=== PATIENT | female | born 1995 | race Caucasian/White ===

== ENCOUNTER 2016-12-04 19:30 | Emergency (ER) | payer OTHER ==
[~2016-12-04] VITALS: Ht 162.6 cm; Wt 92.7 kg
[~2016-12-04 19:30] MED LIST: IBUP80TA PO; PERCOCET PO
[2016-12-04] MEDS ORDERED: MEDR1VL IM (20:00)
[2016-12-05] MEDS ORDERED: KETOROLAC 60 MG/2 ML VIAL (J1885) IM ONE (00:15)
[2016-12-05] MEDS ORDERED: NAPR500T PO (00:23)
[2016-12-05 00:41] VITALS: BP 130/70
--- NOTE | 2016-12-05 00:54 | REP ---
Clinical: Centralized chest pain . Comparison: None . Technique: PA and lateral. Findings: The mediastinum and cardiac silhouette are normal. The lung thomas are clear and without acute consolidation, effusion, or pneumothorax. The skeletal structures are intact and normal. Impression: 1. No acute cardiopulmonary process. Signed by Duc Liao MD 12/05/2016 12:46 A
--- NOTE | 2016-12-05 09:03 | ECGEPIP ---
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
== END 2016-12-05 00:43 | disposition home or self-care (01) ==
LOC: M ED 19:30
DX: M94.0 Chondrocostal junction syndrome [Tietze] (principal); J45.909 Unspecified asthma, uncomplicated; F17.210 Nicotine dependence, cigarettes, uncomplicated; Z88.2 Allergy status to sulfonamides; Z79.899 Other long term (current) drug therapy
CPT/HCPCS: 71020; 93000; 96372; 99283; J1885

== ENCOUNTER → 2018-01-21 | Outpatient (REF) | payer OTHER ==
[2018-01-21 18:32] LABS: HEMOGLOBIN 13.1 g/dl (12.0-15.5); MEAN CORPUSCULAR HEMOGLOBIN 34.1 pg (27.0-33.0); MEAN CORPUSCULAR HGB CONC 34.5 g/dl (32.0-36.5); PLATELET COUNT, AUTOMATED 265 10^3/uL (150-450); RED BLOOD COUNT 3.84 10^6/uL (4.00-5.40); RED CELL DISTRIBUTION WIDTH 11.7 % (11.5-14.5)
[2018-01-22 00:09] LABS: HCG, SERUM QUANTITATIVE 14582 MIU/ML
[2018-01-23 12:11] LABS: HBsAg Prenatal NEGATIVE (NEGATIVE); RUBELLA IgG QUALITATIVE IMMUNE (IMMUNE)
[2018-01-23 12:11] LABS: HEPATITIS C VIRUS ABY INDEX 0.1 INDEX (<0.8)
[2018-01-23 14:14] LABS: HIV 1&2 SCREEN CENTAUR NEGATIVE (NEGATIVE)
== END ==
LOC: M LAB REF 17:09
DX: O36.80X0 Pregnancy with inconclusive fetal viability, not applicable or unspecified (principal); Z32.01 Encounter for pregnancy test, result positive

== ENCOUNTER → 2018-06-21 | Outpatient (CLI) | payer OTHER ==
[~2018-06-21] MED LIST changes: +MEDR1VL IM; +NAPR-50 PO
[2018-06-21 16:21] LABS: HEMATOCRIT 34.3 % (36.0-47.0); HEMOGLOBIN 11.8 g/dl (12.0-15.5); MEAN CORPUSCULAR HEMOGLOBIN 33.8 pg (27.0-33.0); MEAN CORPUSCULAR HGB CONC 34.4 g/dl (32.0-36.5); MEAN CORPUSCULAR VOLUME 98.3 fl (80.0-96.0); PLATELET COUNT, AUTOMATED 256 10^3/uL (150-450); RED BLOOD COUNT 3.49 10^6/uL (4.00-5.40)
== END ==
LOC: M WUC 13:05
PROVIDERS: ATTEND Obstetrics & Gynecology
DX: Z36.89 Encounter for other specified antenatal screening (principal)

== ENCOUNTER → 2018-07-03 | Outpatient (CLI) | payer OTHER | LOC: M LAB 06:51 | PROVIDERS: ATTEND Obstetrics & Gynecology | DX: O99.810 Abnormal glucose complicating pregnancy (principal) ==

== ENCOUNTER → 2018-08-15 | Outpatient (REF) | payer OTHER ==
[~2018-08-15] MED LIST changes: -NAPR-50 PO; +NAPR-837 PO
== END ==
LOC: M LAB REF 13:00
PROVIDERS: ATTEND Obstetrics & Gynecology
DX: Z34.83 Encounter for supervision of other normal pregnancy, third trimester (principal); Z3A.00 Weeks of gestation of pregnancy not specified

== ENCOUNTER 2018-08-29 05:23 | Inpatient (IN) | payer OTHER ==
[2018-08-29] VITALS (9 sets, daily range): BP systolic 106–130; BP diastolic 58–90
[~2018-08-29] VITALS: Ht 167.6 cm; Wt 113.4 kg
[2018-08-29] MEDS ORDERED: LACTATED RINGER'S 1000 ML IV STA (05:46)
[2018-08-29] MEDS ORDERED: LR 1,000 ML IV SCH (05:46)
[2018-08-29] MEDS ORDERED: BICITRA 30ML SOLN UDC PO ONE (06:00)
[2018-08-29 06:06] LABS: HEMATOCRIT 37.8 % (36.0-47.0); HEMOGLOBIN 13.2 g/dl (12.0-15.5); MEAN CORPUSCULAR HEMOGLOBIN 33.7 pg (27.0-33.0); MEAN CORPUSCULAR HGB CONC 34.9 g/dl (32.0-36.5); MEAN CORPUSCULAR VOLUME 96.4 fl (80.0-96.0); PLATELET COUNT, AUTOMATED 271 10^3/uL (150-450); RED BLOOD COUNT 3.92 10^6/uL (4.00-5.40); WHITE BLOOD COUNT 15.7 10^3/uL (4.0-10.0)
[2018-08-29] MEDS ORDERED: MORPHINE PRES-FREE INJ 10 MG/10 ML VIAL (J2274) As Ordered ONE (07:20)
[2018-08-29] MEDS ORDERED: OXYTOCIN INJ 10 UNITS/ML VIAL (J2590) As Ordered ONE (07:21)
[2018-08-29] MEDS ORDERED: METOCLOPRAMIDE INJ 10MG/2ML VIAL (J2765) IV PRN (07:50)
[2018-08-29] MEDS ORDERED: diphenhydrAMINE INJ 50MG/ML VIAL (J1200) IV PRN (07:50)
[2018-08-29] MEDS ORDERED: NALOXONE INJ 0.4 MG/1 ML VIAL (J2310) IV PRN ×2 (07:50)
[2018-08-29] MEDS ORDERED: ONDANSETRON 4MG/2ML VIAL (J2405) IV PRN ×2 (07:50→09:00)
[2018-08-29] MEDS ORDERED: NALBUPHINE HCL 10 MG/ML AMP (J2300) IV PRN ×2 (07:50→09:00)
[2018-08-29] MEDS ORDERED: ePHEDrine SULFATE 25 MG/5 ML(5MG/ML) SYRINGE As Ordered ONE (07:54)
[2018-08-29] MEDS ORDERED: PHENYLephrine HCL 500 MCG/5 ML (100MCG/ML) SYRINGE (J2370) As Ordered ONE (07:56)
[2018-08-29] MEDS ORDERED: OXYTOCIN DRIP 30 UNITS in APPROPRIATE DILUENT 1 EA IV SCH (08:48)
[2018-08-29] MEDS ORDERED: fentaNYL 100 MCG/2 ML INJECTION (J3010) IV PRN (09:00)
[2018-08-29] MEDS ORDERED: MOM 30ML SUSPENSION UDC PO PRN (09:00)
[2018-08-29] MEDS ORDERED: KETOROLAC 30 MG/ML VIAL (J1885) IV PRN (09:00)
[2018-08-29] MEDS ORDERED: MEASLES,MUMPS,RUBELLA VACCINE INJ (MMR-II) (90707) SC SCH (09:00)
[2018-08-29] MEDS ORDERED: MEPERIDINE INJ 25 MG/ML VIAL (J2175) IV PRN (09:00)
[2018-08-29] MEDS ORDERED: RHOGAM 300 MCG (1500 IU) INJ (J2790) IM SCH (09:00)
[2018-08-29] MEDS ORDERED: PERCOCET 5MG/325MG TAB PO PRN (09:00)
[2018-08-29 09:01] LABS: CORD GAS ABE V -4.7; CORD GAS HCO3 V 20.9 MEQ/L; CORD GAS O2 SAT V 78.8 %; CORD GAS PCO2 V 40.6 mmHg; CORD GAS PH V 7.329 UNITS; CORD GAS PO2 V 36.5 mmHg; CORD GAS SBC V 20.2 MEQ/L; CORD GAS TCO2 V 22.1 MEQ/L
[2018-08-29 09:03] LABS: CORD GAS ABE A -4.9; CORD GAS HCO3 A 20.8 MEQ/L; CORD GAS PCO2 A 40.9 mmHg; CORD GAS PH A 7.324 UNITS; CORD GAS PO2 A 42.8 mmHg; CORD GAS SBC A 20.2 MEQ/L
--- NOTE | 2018-08-29 09:33 | RO ---
DATE OF PROCEDURE: 08/29/2018 This is 23-year-old female, 2, para 1-0-0-1, with a history of prior section being admitted for elective repeat section. The patient also desires permanent tubal sterilization. She was counseled extensively in the office and aware of the permanent nature of a tubal ligation, and she wishes to proceed with that. She also understands the number one issues with tubal ligation at a younger age like this is regret. Patient expressed no interest in any future . PREOPERATIVE DIAGNOSES: 1. Term for elective repeat section. 2. Desires permanent tubal sterilization. POSTOPERATIVE DIAGNOSES: 1. Term for elective repeat section. 2. Desires permanent tubal sterilization. PROCEDURE: 1. Repeat section. 2. Bilateral tubal ligation using Filshie clip. 3. Revision of old scar. SURGEON: Dr. Armendariz BEAN DUMPER: Dr. Travis ANESTHESIA: Spinal. COMPLICATIONS: None. ESTIMATED BLOOD LOSS: 500 mL. FINDINGS: Live female infant in occiput transverse position with a nuchal cord times one, 9/9, weight 6 pounds 1 ounce. Placenta delivered manually. Bilateral tube and ovaries within normal limits. DESCRIPTION OF PROCEDURE: After obtaining informed consent, the patient was taken to the operating room where spinal anesthetic was found to be adequate. She was draped and prepped in usual sterile fashion in the supine position. At this point, with the help of Dr. Travis, an elliptical incision was made over the old scar. The old scar was removed. The incision was carried down to the fascia. Fascia was incised in midline fashion and carried through laterally. The fascia was then tented off and dissected off the rectus muscles sharply. The inferior aspect was dissected off in a similar fashion. Rectus muscles in midline fashion. Perineum identified. Peritoneal cavity entered bluntly. Superior and inferior dissection of the peritoneum was then done with good visualization of the bladder. At this point, a Mobius skin retractor was placed. A low-transverse uterine incision was made. Dr. Travis assist in delivering the fetus and after delivery of the the cord was doubly clamped and cut. Cord blood and cord gas were sent. Placenta removed manually. Uterus cleared of all clot and debris, and the uterine incision was then repaired in two separate layers of #0 Vicryl suture. At this point, attention was turned to the fallopian tube where the fimbriated ends were identified and a Filshie clip was then applied approximately 2-3 cm away from the cornual area in each tube. Pelvis copiously irrigated with normal saline and suctioned out. Attention turned to the peritoneum, which was closed in running fashion using #2-0 Vicryl. Fascia closed in two separate segment of #0 Vicryl sutures. All superficial bleeders were coagulated and the skin was reapproximated in subcuticular fashion using #3-0 Vicryl on a Philippe. Steri-Strips placed. The patient tolerated procedure well. She was then transferred to recovery room in stable condition.
[2018-08-29] MEDS ORDERED: OXYTOCIN 30 UNITS IN 0.9% NaCl 500ML IV BAG (J2590) As Ordered ONE (09:38)
[2018-08-29] MEDS: DOCUSATE SODIUM 100 MG CAP PO SCH ×2 (13:39→20:05)
[2018-08-29] MEDS: PRENATAL VITAMINS CHEWABLE TABLET PO SCH (13:41)
[2018-08-29] MEDS: METHYLERGONOVINE MALEATE 0.2 MG TAB PO SCH ×2 (14:33→20:05)
[2018-08-29] MEDS: IBUPROFEN 800 MG TAB PO SCH (20:05)
[2018-08-30 02:00] VITALS: BP 120/67
[2018-08-30] MEDS: METHYLERGONOVINE MALEATE 0.2 MG TAB PO SCH ×2 (02:31→08:02)
[2018-08-30] MEDS: IBUPROFEN 800 MG TAB PO SCH ×3 (05:04→20:21)
[2018-08-30 06:00] VITALS: BP 121/73
[2018-08-30 07:11] LABS: HEMATOCRIT 32.4 % (36.0-47.0); MEAN CORPUSCULAR HEMOGLOBIN 33.4 pg (27.0-33.0); MEAN CORPUSCULAR HGB CONC 33.6 g/dl (32.0-36.5); MEAN CORPUSCULAR VOLUME 99.4 fl (80.0-96.0); PLATELET COUNT, AUTOMATED 211 10^3/uL (150-450); RED BLOOD COUNT 3.26 10^6/uL (4.00-5.40); WHITE BLOOD COUNT 15.6 10^3/uL (4.0-10.0)
[2018-08-30 07:35] LABS: HEMOGLOBIN 10.9 g/dl (12.0-15.5)
[2018-08-30] MEDS: DOCUSATE SODIUM 100 MG CAP PO SCH ×2 (08:02→20:21)
[2018-08-30] MEDS: PRENATAL VITAMINS CHEWABLE TABLET PO SCH (08:02)
[2018-08-30] MEDS: PERCOCET 5MG/325MG TAB PO PRN ×2 (08:02→12:09)
[2018-08-30 10:02] VITALS: BP 117/66
[2018-08-30 14:00] VITALS: BP 124/74
[2018-08-30 18:23] VITALS: BP 120/73
[2018-08-30 22:00] VITALS: BP 128/76
[2018-08-31] MEDS: IBUPROFEN 800 MG TAB PO SCH (04:39)
[2018-08-31 06:00] VITALS: BP 123/28
--- NOTE | 2018-08-31 07:08 | DS.PDOC ---
Discharge Summary General Date of Admission Aug 29, 2018 at 05:23 Date of Discharge 08/31/18 Discharge Summary PROCEDURES PERFORMED DURING STAY: Repeat and bilateral tubal ligation. ADMITTING DIAGNOSES: 1. Repeat at term 2. Satisfied parity. DISCHARGE DIAGNOSES: 1. Repeat section with bilateral tubal ligation COMPLICATIONS/CHIEF COMPLAINT: Previous Ceserean Section. HISTORY OF PRESENT ILLNESS: admitted 08/29 for repeat performed by Dr Armendariz with Dr Thaddeus allen. HOSPITAL COURSE: Uneventful DISCHARGE MEDICATIONS: Please see below. ALLERGIES: Please see below. PHYSICAL EXAMINATION ON DISCHARGE: VITAL SIGNS: Please see below. GENERAL: NAD HEENT: WNL NECK: Supple CARDIOVASCULAR EXAMINATION: Normotensive, HRR RESPIRATORY EXAMINATION: Clear and unlabored ABDOMINAL EXAMINATION: Fundus firm. Steristrips intact. Wound well approximated without evidence infection of dehiscence EXTREMITIES: Equal strength and motion SKIN: Intact NEUROLOGICAL EXAMINATION: Intact PSYCHIATRIC EXAMINATION: Appropriate LABORATORY DATA: Please see below. PROGNOSIS: Good ACTIVITY: As tolerated DIET: Regular DISCHARGE PLAN:Home. Pt desires MOM prior to discharge DISPOSITION: Home. DISCHARGE INSTRUCTIONS: 1. Routine care and precautions. Pelvic rest. Call with fever, N/V/chills, wound exudate, foul lochia. RTO 2 wks and 6 wks DISCHARGE CONDITION: Stable Vital Signs/I&Os Vital Signs Date Time Temp Pulse Resp B/P (MAP) Pulse Ox O2 Delivery O2 Flow Rate FiO2 08/31/18 06:00 98.0 85 17 123/28 (59) 08/30/18 18:23 97 Discharge Medications No Active Prescriptions or Reported Meds Allergies Coded Allergies: Sulfa (Sulfonamide Antibiotics) (Verified Adverse Reaction, Unknown, n/v, 08/22/18) Zenaida Flores CNM Aug 31, 2018 07:08
[2018-08-31] MEDS ORDERED: PERCOCET PO (07:12)
[2018-08-31] MEDS ORDERED: IBUP80TA PO (07:12)
[2018-08-31] MEDS: PRENATAL VITAMINS CHEWABLE TABLET PO SCH (08:10)
[2018-08-31] MEDS: DOCUSATE SODIUM 100 MG CAP PO SCH (08:10)
[2018-08-31] MEDS: PERCOCET 5MG/325MG TAB PO PRN (08:13)
[2018-08-31] MEDS ORDERED: PRENTAB9 PO (09:04)
[2018-08-31] MEDS ORDERED: OXYC1TAB23 PO (09:04)
[2018-08-31] MEDS ORDERED: IBUP-1114 PO (09:04)
== END 2018-08-31 11:04 | disposition home or self-care (01) | DRG 540 ==
LOC: M LDI 05:23 → M OBS 10:25
PROVIDERS: ADMIT Obstetrics & Gynecology; ATTEND Obstetrics & Gynecology
PROC: 0UL70DZ Occlusion of Bilateral Fallopian Tubes with Intraluminal Device, Open Approach (ICD-10-PCS; 2018-08-29)
PROC: 10D00Z1 Extraction of Products of Conception, Low, Open Approach (ICD-10-PCS; principal; 2018-08-29 07:30)
DX: O34.211 Maternal care for low transverse scar from previous cesarean delivery (principal); O69.81X0 Labor and delivery complicated by cord around neck, without compression, not applicable or unspecified; Z30.2 Encounter for sterilization; Z3A.39 39 weeks gestation of pregnancy; Z37.0 Single live birth

== ENCOUNTER 2018-11-17 15:45 | Emergency (ER) | payer OTHER ==
[~2018-11-17] VITALS: Ht 167.6 cm; Wt 109.1 kg
[2018-11-17 15:45] VITALS: BP 138/74
[~2018-11-17 15:45] MED LIST changes: +IBUP-1114 PO; +OXYC1TAB23 PO; +PRENTAB9 PO
[2018-11-17] MEDS ORDERED: PRED10TA2 PO (16:10)
[2018-11-17] MEDS ORDERED: ROBA500T PO (16:10)
== END 2018-11-17 16:25 | disposition home or self-care (01) ==
LOC: M ED 15:45
DX: M54.42 Lumbago with sciatica, left side (principal); F41.9 Anxiety disorder, unspecified; Z79.899 Other long term (current) drug therapy; Z88.2 Allergy status to sulfonamides

== ENCOUNTER → 2020-04-20 | Outpatient (CLI) | payer OTHER ==
[~2020-04-20] MED LIST changes: +PRED10TA2 PO; +ROBA500T PO
== END ==
LOC: M LABSMTC 16:44
PROVIDERS: ATTEND Pediatrics
DX: Z11.59 Encounter for screening for other viral diseases (principal)

== ENCOUNTER → 2020-06-30 | Outpatient (REF) | payer OTHER ==
[2020-06-30 12:16] LABS: BASO # 0.1 10^3/uL (0.0-0.2); BASO % 0.7 % (0.0-1.0); EOS # 0.3 10^3/uL (0.0-0.5); EOS % 2.5 % (0.0-3.0); HEMOGLOBIN 13.5 g/dl (12.0-15.5); LYMPH # 2.5 10^3/uL (1.5-5.0); LYMPH % 25.6 % (24.0-44.0); MEAN CORPUSCULAR HEMOGLOBIN 32.8 pg (27.0-33.0); MEAN CORPUSCULAR HGB CONC 32.9 g/dl (32.0-36.5); MEAN CORPUSCULAR VOLUME 99.5 fl (80.0-96.0); MONO # 0.8 10^3/uL (0.0-0.8); MONO % 8.2 % (2.0-8.0); NEUTROPHILS # 6.1 10^3/uL (1.5-8.5); PLATELET COUNT, AUTOMATED 261 10^3/uL (150-450); RED BLOOD COUNT 4.12 10^6/uL (4.00-5.40); WHITE BLOOD COUNT 9.9 10^3/uL (4.0-10.0)
== END ==
LOC: M LAB REF 11:23
PROVIDERS: ATTEND Pediatrics
DX: R00.0 Tachycardia, unspecified (principal)

== ENCOUNTER → 2020-08-02 | Outpatient (REF) | payer OTHER ==
[2020-08-04 16:00] LABS: CHLAMYDIA DNA AMPLIFICATION NEGATIVE (NEGATIVE); GC DNA AMPLIFICATION NEGATIVE (NEGATIVE)
== END ==
LOC: M LAB REF 11:18
PROVIDERS: ATTEND Pediatrics
DX: Z12.4 Encounter for screening for malignant neoplasm of cervix (principal); N88.8 Other specified noninflammatory disorders of cervix uteri